=== PATIENT | male | born 1995 | race African-American/Black ===

== ENCOUNTER 2017-04-22 00:21 | Emergency (ER) | payer OTHER ==
[~2017-04-22] VITALS: Ht 175.3 cm; Wt 88.0 kg
[2017-04-22 00:24] VITALS: BP 133/75; PULSE 78; RESP 16; TEMP 98.4; O2SAT 99
--- NOTE | 2017-04-22 00:39 | PD ---
HPI Chief Complaint: Medical Clearance Time Seen by Provider: 00:37 Travel History International Travel<30 days: No Contact w/Intl Traveler<30days: No Traveled to known affect area: No History of Present Illness HPI This is a 22-year-old male who presents with no medical complaints. 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 History Social History Alcohol Use: No Tobacco Use: No Allergies-Medications (Allergen,Severity, Reaction): Coded Allergies: Penicillins (Verified Allergy, Unknown, 04/22/17) Review of Systems Except as stated in HPI: all other systems reviewed are Neg Physical Exam Narrative GENERAL: Well-developed well-nourished male in no acute distress sitting upright in hospital bed SKIN: Warm and dry. HEAD: Atraumatic. Normocephalic. EYES: Pupils equal and round. No scleral icterus. No injection or drainage. ENT: No nasal bleeding or discharge. Mucous membranes pink and moist. NECK: Trachea midline. No JVD. CARDIOVASCULAR: Regular rate and rhythm. No murmur appreciated. RESPIRATORY: No accessory muscle use. Clear to auscultation. Breath sounds equal bilaterally. MUSCULOSKELETAL: No obvious deformities. NEUROLOGICAL: Awake and alert. No obvious cranial nerve deficits. Motor grossly within normal limits. Normal speech. PSYCHIATRIC: Appropriate mood and affect; insight and judgment normal. Data Data Last Documented VS Vital Signs Date Time Temp Pulse Resp B/P (MAP) Pulse Ox O2 Delivery O2 Flow Rate FiO2 04/22/17 00:24 98.4 78 16 133/75 (94) 99 MDM Medical Screen Exam Complete: Yes Emergency Medical Condition: No Narrative Course This is a patient with no medical complaints. He does not have an emergent medical condition. A medical screening exam was performed: At the time of evaluation the presenting medical condition was determined not to be of an emergent nature. The patient was given the option of receiving additional care, but declined. Patient was given options for additional community resources from which to obtain care. The Patient Has Been advised to seek medical attention for their presenting complaint. The patient has been advised to return to the ER at any time if an emergent condition develops. Primary Impression: Encounter for medical screening examination Taj Valenzuela Apr 22, 2017 00:39
== END 2017-04-22 01:00 | disposition left against medical advice (07) ==
LOC: NEPK 00:21
DX: Z02.1 Encounter for pre-employment examination (principal)
CPT/HCPCS: 99281